=== PATIENT | male | born 1985 | race Caucasian/White ===

== ENCOUNTER 2018-11-26 19:52 | Inpatient (IN) | payer BC ==
[~2018-11-26] VITALS: Ht 167.6 cm; Wt 83.8 kg
[~2018-11-26 19:52] MED LIST: AMOX-291 PO; ASPI-496 PO; BUME1TAB21 PO; CARV3.122 PO; CHOL500015 PO; CLAR500T PO; DEXA4TAB66 PO; DULO30CA2 PO; ESCI20TA PO; FOLI-17 PO; GABA600T7 PO; GLIP5TAB10 PO; HYDR4TAB PO; IBUP-1222 PO; LEVE500T53 PO; LEVO25TA4 PO; LOSA25TA25 PO; METH750T87 PO; MONT10TA9 PO; MORP15TA PO; MULT1TAB90 PO; OMEG1CAP23 PO; OMEGA 3 PO; OMEP-110 PO; PANT40TA3 PO; PRED20TA PO
--- NOTE | 2018-11-26 20:00 | NUR ---
PT REPORTS REGALADO X 3 DAYS
[2018-11-26] MEDS ORDERED: ONDANSETRON 2MG/ML, 2ML ONE (20:21)
[2018-11-26] MEDS ORDERED: MORPHINE SULFATE 4 MG/ML, 1ML ONE (20:21)
[2018-11-26] MEDS ORDERED: MORPHINE SULFATE 4 MG/ML, 1ML IVPush PRN (20:30)
[2018-11-26] MEDS ORDERED: SODIUM CHLORIDE 0.9% 1,000ML IVBOLUS ONE (20:30)
[2018-11-26] MEDS ORDERED: SODIUM CHLORIDE FLUSH 10ML SYR IVF ONE (20:30)
[2018-11-26] MEDS ORDERED: ONDANSETRON 2MG/ML, 2ML IVPush ONE (20:30)
[2018-11-26 20:58] LABS: ALANINE AMINOTRANSFERASE 56 U/L (12-78); ALBUMIN 2.5 g/dL (3.4-5.0); ANION GAP 6 mmol/L (5-15); CALCIUM 8.2 mg/dL (8.5-10.1); CHLORIDE 106 mmol/L (98-107); CREATININE 1.89 mg/dL (0.7-1.3)
[2018-11-26 21:00] LABS: ALKALINE PHOSPHATASE 126 U/L (45-117); BILIRUBIN,TOTAL 0.6 mg/dL (0.2-1.0)
[2018-11-26 21:12] LABS: MEAN CORPUSCULAR HEMOGLOBIN 29.9 pg (27.5-34.5); MEAN CORPUSCULAR HGB CONC 34.6 g/dL (33.2-36.2); MEAN CORPUSCULAR VOLUME 86.4 fL (81-97); MEAN PLATELET VOLUME 7.4 fL (7.4-10.4); PLATELET COUNT 98 x10^3/uL (130-400); RED BLOOD COUNT 4.34 x10^6/uL (4.38-5.82)
[2018-11-26 21:13] LABS: BASOPHILS # (AUTO) 0.02 x10^3/uL (0-0.1); BASOPHILS % (AUTO) 0 % (0-1); EOSINOPHILS # (AUTO) 0.04 x10^3/uL (0-0.4); EOSINOPHILS % (AUTO) 1 % (1-7); LYMPHOCYTES # (AUTO) 0.94 x10^3/uL (1-3.4); LYMPHOCYTES % (AUTO) 13 % (22-44); MD SCAN; MONOCYTES % (AUTO) 8 % (2-9); NEUTROPHILS % (AUTO) 78 % (42-75)
[2018-11-26 21:30] LABS: MICROSCOPIC AUTO
[2018-11-26 21:31] LABS: CULTURE INDICATED? NO
[2018-11-26] MEDS ORDERED: SODIUM CHLORIDE 0.9% 1,000 ML IV ONE (21:31)
[2018-11-26] MEDS ORDERED: LEVE500T53 PO (21:52)
[2018-11-26] MEDS ORDERED: RESPERIDOL (21:53)
[2018-11-26] MEDS ORDERED: DIVA125C3 PO (21:54)
--- NOTE | 2018-11-26 21:56 | NUR ---
report to floor , pt to room with tech
[2018-11-26] MEDS ORDERED: SODIUM CHLORIDE FLUSH 10ML SYR IVF PRN (22:00)
[2018-11-26 22:35] VITALS: BP 132/84
[2018-11-26] MEDS ORDERED: RISP1TAB3 PO (22:52)
[2018-11-26] MEDS ORDERED: DIVA500T17 PO (22:52)
[2018-11-26] MEDS ORDERED: PROMETHAZINE 25 MG/ML, 1ML IM PRN (23:30)
[2018-11-26] MEDS ORDERED: morphine SULFATE 10 MG/ML, 1ML IVPush PRN (23:30)
[2018-11-26] MEDS ORDERED: ACETAMINOPHEN 325 MG TABLET PO PRN (23:30)
[2018-11-26] MEDS ORDERED: POLYETHYLENE GLYCOL 17 GM PACKET PO PRN (23:30)
[2018-11-26] MEDS ORDERED: KETOROLAC 30 MG/1 ML IV PRN (23:30)
[2018-11-26] MEDS ORDERED: LABETALOL 5MG/ML, 20ML IVPush PRN (23:30)
[2018-11-26] MEDS ORDERED: ONDANSETRON 2MG/ML, 2ML IVPush PRN (23:30)
[2018-11-26] MEDS: LACTATED RINGERS 1,000 ML IV SCH (23:46)
[2018-11-26] MEDS: RISPERIDONE 2 MG TABLET PO SCH (23:46)
[2018-11-26] MEDS: BUTALB/APAP/CAFFEINE 50MG/325MG/40MG PO PRN (23:46)
[2018-11-26] MEDS: LEVETIRACETAM 500 MG TABLET PO SCH (23:46)
[2018-11-27 01:37] LABS: AMPHETAMINE SCREEN, URINE Negative (Negative); BARBITURATE SCREEN, URINE Negative (Negative); BENZODIAZEPINE SCREEN, URINE Negative (Negative); CANNABINOID SCREEN, URINE Negative (Negative); COCAINE SCREEN, URINE Negative (Negative); METHADONE SCREEN, URINE Negative (Negative); OPIATE SCREEN, URINE Positive (Negative)
[2018-11-27 03:59] VITALS: BP 128/86
[2018-11-27] MEDS: OMEPRAZOLE 20 MG CAPSULE.DR PO SCH (05:15)
[2018-11-27 05:40] LABS: MEAN CORPUSCULAR HEMOGLOBIN 30.4 pg (27.5-34.5); MEAN CORPUSCULAR HGB CONC 35.3 g/dL (33.2-36.2); MEAN CORPUSCULAR VOLUME 86.1 fL (81-97); PLATELET COUNT 83 x10^3/uL (130-400); RED BLOOD COUNT 3.69 x10^6/uL (4.38-5.82); RED CELL DISTRIBUTION WIDTH 16.1 % (9.4-14.8)
[2018-11-27 05:47] LABS: ANION GAP 6 mmol/L (5-15); CALCIUM 7.9 mg/dL (8.5-10.1); CHLORIDE 109 mmol/L (98-107); CREATININE 1.74 mg/dL (0.7-1.3)
[2018-11-27 05:58] LABS: BASOPHILS # (AUTO) 0.02 x10^3/uL (0-0.1); BASOPHILS % (AUTO) 0 % (0-1); EOSINOPHILS % (AUTO) 2 % (1-7); LYMPHOCYTES # (AUTO) 0.85 x10^3/uL (1-3.4); LYMPHOCYTES % (AUTO) 16 % (22-44); MD SCAN; MONOCYTES # (AUTO) 0.54 x10^3/uL (0.2-0.8); MONOCYTES % (AUTO) 10 % (2-9); NEUTROPHILS # (AUTO) 3.88 x10^3/uL (1.8-6.8); NEUTROPHILS % (AUTO) 72 % (42-75)
[2018-11-27] MEDS: LACTATED RINGERS 1,000 ML IV SCH ×2 (06:26→15:20)
[2018-11-27 08:10] VITALS: BP 128/81
[2018-11-27] MEDS: SENNA/DOCUSATE TABLET PO SCH (09:37)
[2018-11-27] MEDS: RISPERIDONE 1 MG TABLET PO SCH (09:37)
[2018-11-27] MEDS: LEVETIRACETAM 500 MG TABLET PO SCH ×2 (09:37→20:41)
[2018-11-27] MEDS ORDERED: GADOBUTROL 10 MMOL/10 ML PFS ONE (10:58)
[2018-11-27 13:19] VITALS: BP 128/82
[2018-11-27 18:29] LABS: TROPONIN I < 0.015 ng/mL (0.000-0.045)
[2018-11-27] MEDS: DIVALPROEX 500 MG TAB.ER.24H PO SCH (20:41)
[2018-11-27] MEDS: RISPERIDONE 2 MG TABLET PO SCH (20:41)
[2018-11-27 20:47] VITALS: BP 133/78
[2018-11-28] MEDS: LACTATED RINGERS 1,000 ML IV SCH ×2 (00:39→07:54)
[2018-11-28 05:23] VITALS: BP 147/68
[2018-11-28] MEDS: OMEPRAZOLE 20 MG CAPSULE.DR PO SCH (06:17)
[2018-11-28 06:23] LABS: MEAN CORPUSCULAR HEMOGLOBIN 30.3 pg (27.5-34.5); MEAN CORPUSCULAR HGB CONC 35.6 g/dL (33.2-36.2); MEAN CORPUSCULAR VOLUME 85.2 fL (81-97); RED BLOOD COUNT 3.67 x10^6/uL (4.38-5.82); RED CELL DISTRIBUTION WIDTH 15.6 % (9.4-14.8)
[2018-11-28 06:34] LABS: ANION GAP 5 mmol/L (5-15); CHLORIDE 104 mmol/L (98-107)
[2018-11-28 06:35] LABS: CREATININE 1.61 mg/dL (0.7-1.3)
[2018-11-28 06:45] LABS: MEAN PLATELET VOLUME 8.6 fL (7.4-10.4); PLATELET COUNT 102 x10^3/uL (130-400)
[2018-11-28 06:47] LABS: MD SCAN
[2018-11-28 06:48] LABS: BASOPHILS # (AUTO) 0.03 x10^3/uL (0-0.1); BASOPHILS % (AUTO) 1 % (0-1); EOSINOPHILS # (AUTO) 0.05 x10^3/uL (0-0.4); EOSINOPHILS % (AUTO) 1 % (1-7); LYMPHOCYTES # (AUTO) 0.86 x10^3/uL (1-3.4); LYMPHOCYTES % (AUTO) 18 % (22-44); MONOCYTES # (AUTO) 0.54 x10^3/uL (0.2-0.8); MONOCYTES % (AUTO) 12 % (2-9); NEUTROPHILS # (AUTO) 3.21 x10^3/uL (1.8-6.8); NEUTROPHILS % (AUTO) 69 % (42-75)
[2018-11-28] MEDS: RISPERIDONE 1 MG TABLET PO SCH (07:54)
[2018-11-28] MEDS: LEVETIRACETAM 500 MG TABLET PO SCH ×2 (07:54→20:40)
[2018-11-28] MEDS: SENNA/DOCUSATE TABLET PO SCH (07:54)
[2018-11-28] MEDS: METOPROLOL TARTRATE 50 MG TABLET PO SCH ×2 (08:13→18:06)
[2018-11-28 08:31] VITALS: BP 124/75
[2018-11-28 09:28] LABS: TROPONIN I < 0.015 ng/mL (0.000-0.045)
[2018-11-28 13:24] VITALS: BP 114/66
[2018-11-28] MEDS: BUTALB/APAP/CAFFEINE 50MG/325MG/40MG PO PRN (18:06)
[2018-11-28 18:08] VITALS: BP 128/84
[2018-11-28 19:13] VITALS: BP 122/80
[2018-11-28] MEDS: DIVALPROEX 500 MG TAB.ER.24H PO SCH (20:40)
[2018-11-28] MEDS: RISPERIDONE 2 MG TABLET PO SCH (20:40)
[2018-11-28] MEDS ORDERED: LACTATED RINGERS 1,000 ML IV SCH (23:30)
[2018-11-29 02:30] VITALS: BP 120/79
[2018-11-29] MEDS: OMEPRAZOLE 20 MG CAPSULE.DR PO SCH (05:44)
[2018-11-29] MEDS: METOPROLOL TARTRATE 50 MG TABLET PO SCH ×2 (05:44→17:42)
[2018-11-29 07:03] VITALS: BP 116/73
[2018-11-29 07:15] LABS: ALANINE AMINOTRANSFERASE 43 U/L (12-78); ALBUMIN 2.1 g/dL (3.4-5.0); ANION GAP 6 mmol/L (5-15); CALCIUM 8.6 mg/dL (8.5-10.1); CHLORIDE 103 mmol/L (98-107)
[2018-11-29 07:17] LABS: ALKALINE PHOSPHATASE 92 U/L (45-117); BILIRUBIN,TOTAL 0.5 mg/dL (0.2-1.0); CREATININE 1.55 mg/dL (0.7-1.3); TOTAL PROTEIN 5.4 g/dL (6.4-8.2)
[2018-11-29] MEDS ORDERED: METOPROLOL TARTRATE 50 MG TABLET ONE (08:44)
[2018-11-29] MEDS: RISPERIDONE 1 MG TABLET PO SCH (08:50)
[2018-11-29] MEDS: LEVETIRACETAM 500 MG TABLET PO SCH ×2 (08:50→20:22)
[2018-11-29] MEDS: SENNA/DOCUSATE TABLET PO SCH (08:51)
[2018-11-29] MEDS ORDERED: METOPROLOL TARTRATE 50 MG TABLET PO ONE (09:00)
[2018-11-29 13:02] VITALS: BP 106/66
[2018-11-29 19:32] VITALS: BP 111/65
[2018-11-29] MEDS: DIVALPROEX 500 MG TAB.ER.24H PO SCH (20:22)
[2018-11-29] MEDS: RISPERIDONE 2 MG TABLET PO SCH (20:22)
[2018-11-30 01:15] VITALS: BP 106/62
[2018-11-30] MEDS: OMEPRAZOLE 20 MG CAPSULE.DR PO SCH (05:51)
[2018-11-30] MEDS: METOPROLOL TARTRATE 50 MG TABLET PO SCH (05:52)
[2018-11-30 07:32] VITALS: BP 110/60
[2018-11-30] MEDS: LEVETIRACETAM 500 MG TABLET PO SCH (08:10)
[2018-11-30] MEDS: SENNA/DOCUSATE TABLET PO SCH (08:10)
[2018-11-30] MEDS: RISPERIDONE 1 MG TABLET PO SCH (08:10)
[2018-11-30] MEDS ORDERED: ACET325T14 PO (11:23)
[2018-11-30] MEDS ORDERED: METO50TA82 PO (11:23)
== END 2018-11-30 12:20 | disposition home or self-care (01) | DRG 103 ==
LOC: ED 21:27 → 4WST 21:31 → DCLOUNGE 11-30 12:05
PROVIDERS: ADMIT Family Medicine; ATTEND Family Medicine
DX: G44.309 Post-traumatic headache, unspecified, not intractable (principal); N17.9 Acute kidney failure, unspecified; D64.9 Anemia, unspecified; D69.6 Thrombocytopenia, unspecified; F17.210 Nicotine dependence, cigarettes, uncomplicated; G40.909 Epilepsy, unspecified, not intractable, without status epilepticus; G47.00 Insomnia, unspecified; N18.3 Chronic kidney disease, stage 3 (moderate); Z86.011 Personal history of benign neoplasm of the brain; Z86.19 Personal history of other infectious and parasitic diseases
CPT/HCPCS: 36415; 70450; 70553; 71045; 78582; 80048; 80053; 80307; 81001; 83605; 84145; 84443; 84484; 85025; 85379; 87040; 93005; 93306; 93970; 96374; 96375; A9585; G0378; J2405; A9540; A9558; C9898; J7030; J7120

== ENCOUNTER 2019-02-04 22:49 | Emergency (ER) | payer BC ==
[~2019-02-04] VITALS: Ht 180.3 cm; Wt 92.9 kg
[~2019-02-04 22:49] MED LIST changes: +ACET325T14 PO; +CLAR-36 PO; -CLAR500T PO; +DIVA125C3 PO; +DIVA500T17 PO; +METO50TA82 PO; +RESPERIDOL; +RISP1TAB3 PO
[2019-02-04 22:55] VITALS: BP 150/109
[2019-02-04] MEDS ORDERED: KETOROLAC 60 MG/2 ML ONE (23:27)
[2019-02-04] MEDS ORDERED: KETOROLAC 30 MG/1 ML IM ONE (23:30)
[2019-02-04 23:34] LABS: BASOPHILS # (AUTO) 0.04 x10^3/uL (0-0.1); BASOPHILS % (AUTO) 0 % (0-1); EOSINOPHILS # (AUTO) 0.17 x10^3/uL (0-0.4); EOSINOPHILS % (AUTO) 2 % (1-7); LYMPHOCYTES # (AUTO) 2.29 x10^3/uL (1-3.4); LYMPHOCYTES % (AUTO) 25 % (22-44); MD NO; MEAN CORPUSCULAR HEMOGLOBIN 28.2 pg (27.5-34.5); MEAN CORPUSCULAR HGB CONC 34.2 g/dL (33.2-36.2); MEAN CORPUSCULAR VOLUME 82.6 fL (81-97); MEAN PLATELET VOLUME 8.3 fL (7.4-10.4); MONOCYTES # (AUTO) 0.57 x10^3/uL (0.2-0.8); MONOCYTES % (AUTO) 6 % (2-9); NEUTROPHILS # (AUTO) 6.04 x10^3/uL (1.8-6.8); NEUTROPHILS % (AUTO) 66 % (42-75); PLATELET COUNT 252 x10^3/uL (130-400); RED BLOOD COUNT 4.66 x10^6/uL (4.38-5.82); RED CELL DISTRIBUTION WIDTH 14.1 % (9.4-14.8)
[2019-02-04] MEDS ORDERED: OMEG1CAP6 PO (23:57)
--- NOTE | 2019-02-04 23:59 | NUR ---
ALL RESULTS UP. PT UP FOR RECHECK. PT MEDICATED FOR PAIN PER EMAR. WILL CONTINUE TO MONITOR.
== END 2019-02-05 01:43 | disposition home or self-care (01) ==
LOC: ED 02-05
DX: M13.871 Other specified arthritis, right ankle and foot (principal); M10.071 Idiopathic gout, right ankle and foot
CPT/HCPCS: 36415; 73630; 84550; 85025; 96372; 99284; J1885